=== PATIENT | male | born 1950 | race Caucasian/White ===

== ENCOUNTER → 2017-07-15 | Outpatient (CLI) | payer OTHER | LOC: HYPER 07:14 | DX: E11.622 Type 2 diabetes mellitus with other skin ulcer (principal); L97.311 Non-pressure chronic ulcer of right ankle limited to breakdown of skin; L97.321 Non-pressure chronic ulcer of left ankle limited to breakdown of skin; L89.224 Pressure ulcer of left hip, stage 4; L89.603 Pressure ulcer of unspecified heel, stage 3; Q05.9 Spina bifida, unspecified ==

== ENCOUNTER → 2017-08-14 | Outpatient (CLI) | payer OTHER | LOC: HYPER 08-05 06:48 | DX: L89.513 Pressure ulcer of right ankle, stage 3 (principal); L89.523 Pressure ulcer of left ankle, stage 3; L89.224 Pressure ulcer of left hip, stage 4; E11.622 Type 2 diabetes mellitus with other skin ulcer; L97.321 Non-pressure chronic ulcer of left ankle limited to breakdown of skin; L97.311 Non-pressure chronic ulcer of right ankle limited to breakdown of skin; L98.491 Non-pressure chronic ulcer of skin of other sites limited to breakdown of skin; Z72.89 Other problems related to lifestyle ==